=== PATIENT | male | born 1995 | race Caucasian/White ===

== ENCOUNTER 2018-09-11 00:46 | Emergency (ER) | payer BC, OTHER ==
--- NOTE | 2018-09-11 01:09 | EDM.PDOC ---
ED HPI GENERAL MEDICAL PROBLEM - General Chief Complaint: Head Injury Stated Complaint: LEFT SIDE OF FACE SWOLLEN- HIT IN FACE BY SOFTBALL Time Seen by Provider: 09/11/18 01:08 Source of Information: Reports: Patient - History of Present Illness INITIAL COMMENTS - FREE TEXT/NARRATIVE: HISTORY AND PHYSICAL: History of present illness: [Patient was struck with a baseball on the left side of his head / jaw, no loss of consciousness incident occurred more than 24 hours prior, patient presents at the urging of his girlfriend as his face is quite swollen he rates pain 3 out of 10 and tolerable he is able to eat and speak clearly without any distress or pain Review of systems: As per history of present illness and below otherwise all systems reviewed and negative. Past medical history: As per history of present illness and as reviewed below otherwise noncontributory. Surgical history: As per history of present illness and as reviewed below otherwise noncontributory. Social history: No reported history of drug or alcohol abuse. Family history: As per history of present illness and as reviewed below otherwise noncontributory. Physical exam: HEENT: , normocephalic, pupils reactive, negative for conjunctival pallor or scleral icterus, mucous membranes moist, throat clear, neck supple, nontender, trachea midline. Moderate swelling over left jaw noted consistent with injury Lungs: Clear to auscultation, breath sounds equal bilaterally, chest nontender. Heart: S1S2, regular, negative for clicks, rubs, or JVD. Abdomen: Soft, nondistended, nontender. Negative for masses or hepatosplenomegaly. Negative for costovertebral tenderness. Pelvis: Stable nontender. Genitourinary: Deferred. Rectal: Deferred. Extremities: Atraumatic, negative for cords or calf pain. Neurovascular unremarkable. Neuro: Awake, alert, oriented. Cranial nerves II through XII unremarkable. Cerebellum unremarkable. Motor and sensory unremarkable throughout. Exam nonfocal. Diagnostics: [CT head cervical spine maxillofacial no contrast ] Therapeutics: [Rest ice ibuprofen ] Impression: [Facial injury/contusion Probable concussion] Definitive disposition and diagnosis as appropriate pending reevaluation and review of above. left facial area Pain Score (Numeric/FACES): 8 - Related Data Allergies Allergy/AdvReac Type Severity Reaction Status Date / Time No Known Allergies Allergy Verified 09/11/18 00:58 Home Meds: Home Meds . [No Known Home Meds] 09/11/18 [History] Past Medical History Dermatologic History: Reports: None - Past Surgical History Dermatological Surgical History: Reports: Other (See Below) Social & Family History - Family History Family Medical History: Noncontributory - Tobacco Use Smoking Status *Q: Never Smoker Second Hand Smoke Exposure: No - Caffeine Use Caffeine Use: Reports: Coffee, Energy Drinks - Recreational Drug Use Recreational Drug Use: No ED ROS GENERAL - Review of Systems Review Of Systems: See Below ED EXAM, HEAD INJURY - Physical Exam Exam: See Below Course - Vital Signs Last Recorded V/S: Last Vital Signs Temp 96 F 09/11/18 00:55 Pulse 80 09/11/18 02:08 Resp 20 09/11/18 02:08 BP 134/88 09/11/18 02:08 Pulse Ox 99 09/11/18 02:08 - Orders/Labs/Meds Labs: Laboratory Tests 09/11/18 Range/Units 02:21 WBC 7.82 (4.0-11.0) K/uL RBC 4.70 (4.50-5.90) M/uL Hgb 13.9 (13.0-17.0) g/dL Hct 40.9 (38.0-50.0) % MCV 87.0 (80.0-98.0) fL MCH 29.6 (27.0-32.0) pg MCHC 34.0 (31.0-37.0) g/dL RDW Std Deviation 41.4 (28.0-62.0) fl RDW Coeff of Cammie 13 (11.0-15.0) % Plt Count 165 (150-400) K/uL MPV 9.60 (7.40-12.00) fL Nucleated RBC % 0.0 /100WBC Nucleated RBCs # 0 K/uL Meds: Medications Discontinued Medications Generic Name Dose Route Start Last Admin Trade Name Freq PRN Reason Stop Dose Admin Ondansetron HCl 8 mg 09/11/18 01:59 09/11/18 02:07 Zofran Odt PO 09/11/18 02:00 8 mg ONETIME ONE Administration Departure - Departure Time of Disposition: 02:27 Disposition: Home, Self-Care 01 Condition: Good, Fair Clinical Impression: Facial injury - Discharge Information Referrals: Sergey Gibbons MD [Primary Care Provider] - Forms: ED Department Discharge Additional Instructions: Continue rest ice ibuprofen as needed Prescription for Zofran provided Return if symptoms persist or worsen or if new concerning symptoms develop Follow-up with primary care in 2 weeks sooner as needed [facility] - [facility] Care [address] [place] [id number] The following information is given to patients seen in the emergency department who are being discharged to home. This information is to outline your options for follow-up care. We provide all patients seen in our emergency department with a follow-up referral. The need for follow-up, as well as the timing and circumstances, are variable depending upon the specifics of your emergency department visit. If you don't have a primary care physician on staff, we will provide you with a referral. We always advise you to contact your personal physician following an emergency department visit to inform them of the circumstance of the visit and for follow-up with them and/or the need for any referrals to a consulting specialist. The emergency department will also refer you to a specialist when appropriate. This referral assures that you have the opportunity for follow-up care with a specialist. All of these measure are taken in an effort to provide you with optimal care, which includes your follow-up. Under all circumstances we always encourage you to contact your private physician who remains a resource for coordinating your care. When calling for follow-up care, please make the office aware that this follow-up is from your recent emergency room visit. If for any reason you are refused follow-up, please contact the [facility] emergency department at and asked to speak to the emergency department charge nurse.
--- NOTE | 2018-09-11 01:40 | CT ---
INDICATION: Struck by a softball in the face. Pain. COMPARISON: None available TECHNIQUE: CT examination of the cervical spine is performed without contrast using spiral technique. 2 mm thick axial, sagittal and coronal reconstructions were made. Please note that all CT scans at this facility use dose modulation, iterative reconstruction, and/or weight-based dosing when appropriate to reduce radiation dose to as low as reasonably achievable. FINDINGS: : There is no sign of fracture or subluxation. The cervical vertebral bodies and intervertebral discs are normal in height and are in anatomic alignment. There is no sign of prevertebral soft tissue swelling. The airway structures are normal in appearance. The visualized skull base is normal in appearance. Brain detail is extremely limited by the use of bone technique, but no gross abnormality is seen. The apices of the lungs are clear. IMPRESSION: Normal CT of the cervical spine with no sign of acute injury. Please note that all CT scans at this facility use dose modulation, iterative reconstruction, and/or weight-based dosing when appropriate to reduce radiation dose to as low as reasonably achievable. Dictated by Mahendra Billy MD @ Sep 11 2018 1:37AM Signed by Dr. Mahendra Billy @ Sep 11 2018 1:39AM
--- NOTE | 2018-09-11 01:42 | CT ---
INDICATION: Hit on left side of head TECHNIQUE: CT Head without i.v. contrast. COMPARISON: None FINDINGS: CSF space: The ventricles are normal for age. Brain: No evidence of mass, acute infarction or hemorrhage is seen. No mass-effect or midline shift is seen. The brain parenchyma is otherwise normal in appearance with preservation of the gardner-white matter junction. Calvarium: The visualized paranasal sinuses are well aerated. The mastoid air cells are clear. The visualized orbits are grossly unremarkable. The calvarium is unremarkable in appearance with no fractures identified. IMPRESSION: 1. No evidence of acute infarction, intracranial hemorrhage, or mass-effect seen. Please note that all CT scans at this facility use dose modulation, iterative reconstruction, and/or weight-based dosing when appropriate to reduce radiation dose to as low as reasonably achievable. Dictated by: David Ross MD @ 09/11/2018 01:41:07 (Electronically Signed)
--- NOTE | 2018-09-11 01:48 | CT ---
INDICATION: Struck on the left side of the face by a softball. COMPARISON: None available TECHNIQUE: CT examination of the facial bones is performed without contrast enhancement using spiral technique. 2-mm thick axial, coronal and sagittal sections were obtained from the data. Please note that all CT scans at this facility use dose modulation, iterative reconstruction, and/or weight-based dosing when appropriate to reduce radiation dose to as low as reasonably achievable. FINDINGS: There is prominent soft tissue swelling of the left cheek, resulting from a hematoma within the muscle belly of the left masseter with overlying contusion of the subcutaneous fat and thickening of the platysma. No distinct, drainable area of hemorrhage is seen. There is no sign of facial fracture on today`s study. The orbits, zygomatic arches, nasal bones, maxillae, and mandible are normal in appearance. The dental structures are normal in appearance. The paranasal sinuses are clear. The mastoids are clear. The intraorbital soft tissue structures are unremarkable. The airway structures are normal in appearance. IMPRESSION: Prominent soft tissue swelling of the left cheek, resulting from a hematoma within the muscle belly of the left masseter and an overlying soft tissue contusion. No distinct drainable hematoma or other fluid collection. No sign of any underlying osseous injury. Please note that all CT scans at this facility use dose modulation, iterative reconstruction, and/or weight-based dosing when appropriate to reduce radiation dose to as low as reasonably achievable. Dictated by Mahendra Billy MD @ Sep 11 2018 1:39AM Signed by Dr. Mahendra Billy @ Sep 11 2018 1:46AM
[2018-09-11] MEDS ORDERED: Ondansetron 4 MG Tab.DIS PO ONE (01:59)
== END 2018-09-11 02:40 | disposition home or self-care (01) ==
LOC: MW.ED 00:46
DX: S00.83XA Contusion of other part of head, initial encounter (principal); W21.03XA Struck by baseball, initial encounter
CPT/HCPCS: 36415; 70450; 70486; 72125; 85027; 99284; A9270; 99283